=== PATIENT | male | born 1960 | race Two or more races ===

== ENCOUNTER 2024-06-26 12:21 | Day surgery (SDC) | payer OTHER ==
[2024-06-20 09:44] LABS: HEMATOCRIT 45.8 % (39.0-48.0); HEMOGLOBIN 15.2 g/dL (13-16.00); MEAN CELL VOLUME 85.5 fL (80.0-100.00); MEAN CORPUSCULAR HEMOGLOBIN 28.3 pg (27.00-32.0); MEAN CORPUSCULAR HGB CONC 33.1 g/dl (32.0-36.0); PLATELET COUNT 161 K/uL (150-450); RED BLOOD COUNT 5.35 M/uL (4.00-6.00)
[2024-06-20 09:47] LABS: PH,URINE 6.5 (5.0-8.0); URINE APPEARANCE Clear; URINE BILIRRUBIN Negative (NEGATIVE); URINE BLOOD Negative; URINE COLOR Yellow; URINE KETONE Negative (NEGATIVE); URINE LEUKOCYTE Negative; URINE NITRATE Negative; URINE PROTEIN Negative (NEGATIVE)
[2024-06-20 09:48] LABS: URINE WBC 10.9 uL (0.0-23.2)
[2024-06-20 09:53] LABS: URINE EPITHELIAL CELLS 1.2 uL (0.0-38.8); URINE GLUCOSE >=1000 MG/DL (NEGATIVE); URINE RBC 1.5 uL (0.0-20.8)
[2024-06-20 10:18] LABS: INR 1.05; PARTIAL THROMBOPLASTIN TIME 28.4 SECONDS (22.0-34.0); PROTHROMBIN TIME 11.4 SECONDS (9.0-11.5)
[2024-06-20 10:21] LABS: CREATININE SERUM 1.02 mg/dL (0.70-1.30); GFR 73.07; POTASSIUM 3.92 mEq/L (3.5-5.1)
[~2024-06-26 12:21] MED LIST: ACTOS; AMARYL; FARXIGA; JANUMET; KETO10TA2 PO; LOSARTAN; MIRALAX17 GM PO; TRAMADOL HCL50 MG PO; TYLENOL ARTHRI650 MG PO
[2024-06-26] MEDS ORDERED: BUPIVACAINE HCL/PF 0.25% 30ML VIAL InF ONE (15:15)
[2024-06-26] MEDS ORDERED: CEFAZOLIN SODIUM 1,000 MG VIAL IV ONE (15:15)
[2024-06-26] MEDS ORDERED: KETOROLAC TROMETHAMINE 30 MG VIAL IV SCH (16:45)
[2024-06-26] MEDS ORDERED: SUGAMMADEX SODIUM 200 MG/2 ML VIAL IV ONE (17:15)
[2024-06-26] MEDS ORDERED: MORPHINE SULFATE 4 MG/ML VIAL IV ONE (18:10)
== END 2024-06-26 19:35 | disposition home or self-care (01) ==
LOC: CIR.AMB 12:21
PROVIDERS: ATTEND Surgery
DX: K42.0 Umbilical hernia with obstruction, without gangrene (principal); K43.6 Other and unspecified ventral hernia with obstruction, without gangrene
CPT/HCPCS: 49594; C1781